=== PATIENT | female | born 1975 | race Caucasian/White ===

== ENCOUNTER → 2018-04-27 14:26 | Outpatient (CLI) | payer OTHER, SELFPAY ==
[2018-05-03 08:31] LABS: HPV HC, High Risk Negative (Negative)
== END ==
PROVIDERS: Visit Provider Obstetrics & Gynecology
DX: Z12.4 Encounter for screening for malignant neoplasm of cervix (principal)
CPT/HCPCS: 87624; 88175; G0145

== ENCOUNTER → 2019-05-08 15:29 | Outpatient (CLI) | payer OTHER, SELFPAY ==
[2019-04-08 10:00] VITALS: BMI 46.8
--- NOTE | 2019-05-08 15:31 | RAD_ITS ---
STUDY: X-RAY - LUMBAR SPINE REASON FOR EXAM: Female, 43 years old. Back pain. TECHNIQUE: 3 view(s) of the lumbar spine were obtained. COMPARISON: June 10, 2016 FINDINGS: Normal lumbar lordosis. There is no substantial scoliosis. There is a normal alignment of the vertebrae. There is multilevel endplate spondylosis of the lumbar vertebrae. There is degenerative disc disease with disc space narrowing at L4-L5 and L5-S1. The soft tissue structures are unremarkable. RAD/Lumbar Spine 2 or 3 Views IMPRESSION: Degenerative changes of the spine, as detailed above. Electronically Signed: Mckenzie Barry MD at 16:04 EDT Tel , Service support ,
== END ==
PROVIDERS: Family Provider Family Medicine; PCP Family Medicine; Referring Provider Anesthesiology Pain Medicine; Visit Provider Anesthesiology Pain Medicine
DX: M54.9 Dorsalgia, unspecified (principal); M79.606 Pain in leg, unspecified
CPT/HCPCS: 72100; 72110

== ENCOUNTER → 2019-06-14 10:40 | Outpatient (CLI) | payer OTHER, SELFPAY ==
[2019-05-15 15:40] VITALS: BMI 46.8
--- NOTE | 2019-06-14 10:42 | STEWCON_ITS ---
Reason For Study: Chest Pain Stress Results Protocol: Shay Protocol Maximum Predicted HR: 178 bpm Target HR: 151 bpm % Maximum Predicted HR: 99 % DurationHeart Rate Stage (mm:ss) (bpm) BP Comment Baseline 85 128/78No Chest Pain; 4 ML Diluted Definity Given Shay Protocol Stage I 3:00 134 142/74No Chest Pain Shay Protocol Stage II 3:00 162 160/70No Chest Pain; Mild Dyspnea Shay Protocol Stage III 1:30 176 / No Chest Pain; Mild Dyspna Recovery 106 122/70No Chest Pain Stress Duration: 7:30 mm:ss Maximum Stress HR: 176 bpm METS: 10 Baseline Echocardiogram Findings Stress Echo Wall motion Data Resting WM Intermediate WM Stress WM Interpretation Summary Resting EKG demonstrates normal sinus rhythm with a rate of 84 bpm normal intervals are noted resting blood pressures 128/78 mmHg. Patient exercised according to regular Shay protocol for a total duration of 7 minutes and 30 seconds. The patient completed 1 minute and 30 seconds to stage III of the Shay protocol the maximum heart rate attained was 176 bpm which was 98% of maximum predicted heart rate the maximum workload was 10.4 metabolic equivalents. The patient maintained sinus rhythm throughout the recording. At rest there were no ST or T wave changes noted suggest ischemia. The resting blood pressures 128/78 peak blood pressure 160/70 mmHg. Stress echocardiogram. Resting and stress echocardiogram was performed with Definity enhancement. The resting ejection fraction was noted to be 55% with a peak ejection fraction of 65 to 70%. No wall motion abnormalities were noted. Conclusion: Exercise stress echocardiogram with no evidence of ischemia. Excellent functional capacity. No arrhythmias noted. Preserved ejection fraction Ordering Physician: Wellington Ingram Referring Physician: Malcom Peters Performed By: Racquel Willard, RDCS, RVT
== END ==
PROVIDERS: Family Provider Family Medicine; PCP Family Medicine; Referring Provider Family Medicine; Visit Provider Family Medicine
DX: R07.9 Chest pain, unspecified (principal)
CPT/HCPCS: 93017; 93350; Q9957; A4216; C8928

== ENCOUNTER → 2021-02-12 14:16 | Outpatient (CLI) | payer SELFPAY ==
[2019-05-15 15:40] VITALS: BMI 46.8
[2021-02-12 14:27] VITALS: BP 118/67; PULSE 62; RESP 14; O2SAT 100; BMI 42.9
--- NOTE | 2021-02-12 14:36 | CT_ITS ---
STUDY: CT CHEST WITHOUT CONTRAST REASON FOR EXAM: Female, 45 years old. STRONG FAMILY HX CAD RADIATION DOSAGE (If Supplied By Facility): CTDIvol = ( 12.19 ) mGy, DLP = ( 243.79 ) mGycm TECHNIQUE: Transaxial imaging was performed without the administration of intravenous contrast material. Individualized dose optimization techniques were used for this CT. COMPARISON: None. FINDINGS: The lungs are normal. There is no demonstrated pleural abnormality. Normal heart and pericardium. There are scattered small lymph nodes within the mediastinum, which are normal in size and morphology most compatible with reactive lymph hyperplasia. Normal hilar regions. Normal unenhanced pulmonary arteries. Normal aorta arch and descending thoracic aorta. Normal osseous structures. There is no demonstrated abnormality of the visualized upper abdomen. CT/Limited Chest CT w/CCTA IMPRESSION: Normal unenhanced CT Chest examination. Electronically Signed: Flaco Hopkins MD at 12:29 EDT , Service support ,
--- NOTE | 2021-02-15 09:24 | CA.SCORE ---
Calcium Scoring Coronary Calcium Scoring: High-resolution Computed Tomographic imaging of the chest was performed on [02/12/2021], with particular attention paid to the coronary arteries. Images from the examination were analyzed for the presence and extent of coronary artery calcification , using coronary calcium quantification software. The patient tolerated the procedure well and there were no complications. The results of the coronary calcification analysis are provided below. Left main score is 0 Left anterior descending artery score 0 Left circumflex artery score 0 Right coronary artery score 0 Total Agatston score 0. The above is suggestive of no identifiable atherosclerotic plaquing. Very low cardiovascular disease risk noted. Calcium Scoring Interpretation: 0 No identifiable atherosclerotic plaque. Very low cardiovascular disease risk. <5% chance of presence coronary artery disease A Negative Examination 1-10 Minimal Plaque burden. Significant coronary artery disease very unlikely. 11-100 Mild plaque burden. Likely mild or minimal coronary atherosclerosis. 101-400 Moderate plaque burden Moderate non-obstructive coronary artery disease highly likely. Over 400 Extensive plaque burden. High likelihood of at least one significant coronary stenosis (>50% diameter)
== END ==
PROVIDERS: PCP Family Medicine; Referring Provider Family Medicine; Visit Provider Family Medicine
DX: Z13.6 Encounter for screening for cardiovascular disorders (principal); E78.5 Hyperlipidemia, unspecified; R73.01 Impaired fasting glucose; Z82.49 Family history of ischemic heart disease and other diseases of the circulatory system
CPT/HCPCS: 75571; 76380

== ENCOUNTER 2022-04-27 15:44 | Outpatient (RCR) | payer OTHER, SELFPAY ==
--- NOTE | 2022-04-29 09:32 | HP.OTEVAL ---
Patient's Visit Information EUGENIA SOMMER is a 46 year old F, referred to Occupational Therapy by Dr. Wellington Ingram DO, with a diagnosis of CTS. Date of Evaluation: 04/27/22 Occupational Therapist: Linda Licona, JESSICAR/Rob, CHT - Subjective This 46 year old female was seen due to pain in and soreness in right hand with tingling/numbness- states symptoms would come and go but has not changed much in last 2 months. Tingling does cause pain and by the end of her work week pain is 6/10. 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 pt would like to decrease symptoms. - Pain right hand \ 0 Pain Intensity Range: 6 - ROM ROM Comments: pt demo full ROM of bilateral UE - Strength Buffing Wheel Operator: right 65# left 60# Lateral Pinch: right 10# left10# Tripod Pinch: right 10# left 10# - Sensation Thumb: right 2.83 left 2.83 Index: right 2.83 left 2.83 Middle: right 2.83 left 2.83 Ring: right 2.83 left 2.83 Little: right 2.83 left 2.83 - Quick DASH-Disab of Arm,Shoulder& Hand Quick DASH Score: 30.0000 - Goals Goal:: pt will report a decrease in CTS of right hand by 75% by d/c indicating a decrease in nerve compression. Goal:: pt will demo IND doffing/donning night orthosis by end of 1st session. pt will demo understanding of returning to clinic for orthosis adj. by end of 1st session. - Rehabilitation General Assessment: this 46 year old female is demo with positive signs of CTS. this is causing pain- tingling and numbness that interrupts her work day and sleeping. PT would benefit from skilled OT services 1-2x week for 4 weeks to decrease symptom of median nerve entrapment. pt agrees to POC. Rehabilitation Potential: Good - Anticipated Interventions A/AAROM/PROM, Modalities, Orthoses, Joint Protection/Energy Conservation, Ergonomic Education, Education re assistive Equipment, Education re Diagnosis, Home Program, Other Other Interventions: median nerve glides - Visit Plan TEXT: Thank you for the opportunity to evaluate your patient. For Medicare and Medicare HMO plans, please review the plan of care and approve it. It will need to be FAXED BACK to us at [phone] for Medicare purposes. Please let me know if there are questions or concerns regarding this plan of care. Physician Signature: Date:
--- NOTE | 2022-07-27 11:52 | HP.OT.NRP ---
EUGENIA SOMMER was seen in my office for initial evaluation on 04/27/22. The following Plan of Care was established for this patient: Anticipated Interventions: A/AAROM/PROM, Modalities, Orthoses, Joint Protection/Energy Conservation, Ergonomic Education, Education re assistive Equipment, Education re Diagnosis, Home Program, Other Other Interventions: median nerve glides This patient was last seen in our office 04/27/22. Pertinent comments regarding their Occupational therapy will appear below: Pt was seen for OT eval only. No further apts scheduled and due to time lapse in services pt d.c at this time. At this point I will be discontinuing this patient from occupational therapy. I would be happy to see this patient again in the future if found appropriate by the physician. Thank you! Linda Licona, OTR/L, CHT
== END 2022-04-27 19:00 | disposition home or self-care (01) ==
LOC: OT 15:44
PROVIDERS: PCP Family Medicine; Referring Provider Family Medicine; Visit Provider Family Medicine
DX: M77.8 Other enthesopathies, not elsewhere classified (principal); G56.01 Carpal tunnel syndrome, right upper limb; M79.672 Pain in left foot
CPT/HCPCS: 97166

== ENCOUNTER → 2022-06-17 | Outpatient (CLI) | payer OTHER, SELFPAY ==
--- NOTE | 2022-06-17 08:00 | BI_ITS ---
MAMMOGRAPHY - BILATERAL SCREENING REASON FOR EXAM: Female, 47 years old. Routine annual screening examination. PERTINENT HISTORY: Non-contributory. History of prior bilateral breast reduction surgery. TECHNIQUE: Digital bilateral breast eugenia (3D mammographic acquisition) in the CC and MLO projections. 2-D mediolateral oblique (MLO) and craniocaudad (CC) views of both breasts were obtained. CAD: Full Field Digital Mammography with Computer Added Detection was performed. COMPARISON: Comparison is made with prior study dated 10/07/2016. FINDINGS: Breast Composition: The breasts are almost entirely fatty. There are no dominant masses or suspicious calcifications. Stable small benign-appearing bilateral axillary lymph nodes. No other significant abnormalities are identified. There has been no significant change since the prior study. BI/SCRN MAMM (CAD)W/EUGENIA BILAT IMPRESSION: Stable bilateral screening mammogram. Yearly follow-up mammogram recommended. (A) ASSESSMENT CATEGORY: BIRADS Category 1: Negative. A letter regarding these results will be sent to the patient by the facility within 30 days. Approximately 10% of breast cancers are not detected by mammography. A normal mammogram should not delay biopsy of a clinically suspicious abnormality. [id number] Electronically Signed: Flaco Hopkins MD at 8:45 EDT ,
== END | disposition home or self-care (01) ==
LOC: OPBI 07:59
PROVIDERS: PCP Family Medicine; Referring Provider Family Medicine; Visit Provider Family Medicine
DX: Z12.31 Encounter for screening mammogram for malignant neoplasm of breast (principal)
CPT/HCPCS: 77063; 77067

== ENCOUNTER 2022-09-15 07:32 | Day surgery (SDC) | payer OTHER, SELFPAY ==
[2022-09-15] VITALS (7 sets, daily range): BP systolic 107–120; BP diastolic 54–63; PULSE 78–85; RESP 16–18; TEMP 36.4–37.2; O2SAT 96–100; BMI 41.1
[2022-09-15] MEDS: Lactated Ringers 1,000 ML 15 ML IV (08:00)
[2022-09-15 08:03] LABS: Internal QC Validated? YES +Cl - CLEAR BKGD; Pregnancy, Urine Negative Negative
--- NOTE | 2022-09-15 08:43 | HP.PCM_ITS ---
[facility] - General General Date of Service: 09/15/22 Chief Complaint: Colon cancer screening [facility] Narrative EUGENIA SOMMER, is a 47 F who presents for open access colonoscopy. She was previously screened through our routine questionnaire. She confirms that she has not had any recent complaints with her bowel movements?further she details that she has not had any bleeding, constipation, or diarrhea. She notes that her only familial gastrointestinal history of significance is a maternal grandfather who was diagnosed with diverticulitis late in life. Personally her only gastrointestinal surgery was cholecystectomy. She denies any present use of blood thinners. [facility] Medical History (Updated 09/14/22 @ 13:52 by Melissa Aceves) Bronchitis Cervical radiculitis Cervical strain Contact dermatitis due to poison ronal Endometrial polyp History of stress test Insect bite Low iron Menorrhagia Neck pain Non-smoker Shoulder pain Tinea corporis Home Medications NK 09/14/22 [History Last Taken Unknown] Allergy/AdvReac Type Severity Reaction Status Date / Time No Known Allergies Allergy Verified 09/15/22 07:51 Family History (Updated 07/25/22 @ 08:59 by Sana Gusman) Mother S/P CABG x 3 Father CAD (coronary artery disease) Other Diabetes Heart disease Surgical History (Updated 09/14/22 @ 13:52 by Melissa Aceves) History of bilateral breast reduction surgery History of cholecystectomy History of D&C History of endometrial ablation Social History (Updated 07/25/22 @ 08:59 by Sana Gusman) current occupational status: employed current occupation: Massage Therapist at [employer] Smoking Status: Never smoker alcohol intake: never Past Medical/Surgical History Planned Operation Planned Operative Procedure/s: CSCOPE OA S.O.S: No Previous Hospitalizations/Surgeries HX Hospitalizations: No HX of Surgeries: BILATERAL BREAST REDUCTION Any Problems With Anesthesia: No You/Your Family Experience Fever (Hyperthermia) With Anes: No Cholinesterase deficiency: No Cardiovascular Hx Chest Pain within Last 2 months: No Hx of Irregular Heartbeat and/or Afib: No Hx Heart Attack: No Hx Congestive Heart Failure: No Hx Rheumatic Fever: No Hx Hypertension: No Hx Internal Defibrillator: No Hx Pacemaker: No Hx Cardiac Catheterization: No Hx Cardiac Surgery/Stents/Etc.: No Hx Stress Test: No Hx Pain in Legs when Walking/Leg Cramps: No Respiratory Chronic Cough: No HX of Shortness of Breath: No Hoarseness: No Hx Chronic Obstructive Pulmonary Disease (COPD): No Hx Asthma: No Hx Emphysema: No Hx Sleep Apnea: No CPAP: No BIPAP: No Hx Respiratory Tract Infection/Cold (presently): No Do You Snore Loudly (louder than talking or can be heard): No Do You Often Feel Tired/ Fatigued/ Sleepy Dring Daytime?: No Has Anyone Observed You Stop Breathing During Sleep?: No Result (for STOP score): Negative Hx Smoking: No Smoking Status: Never smoker Gastrointestinal Hx Gastroesophageal Reflux: No Controlled With Meds: Yes Hx Gastrointestinal Disorders: No Hx Gastrointestinal Bleed: No Hx Ulcer: No Hx Hiatal Hernia: No Difficulty Chewing/Swallowing: No Special diet followed at home: No Hx Unplanned Weight Loss of 20#: No HX Unplanned Weight Gain of 20#: No Neurological Hx Seizures: No HX Syncope/Blackout Spells/Unconsciousness: No Hx Transient Ischemic Attacks (TIA): No Hx Multiple Sclerosis: No Hx Parkinson's Disease: No Hx Head/Neck Injury: No Hx Headaches: No Hx Back Injury/Pain: No Recent Onset of Speech Difficulty: No Restless Legs: No Does patient have nerve stimulator: No Blood Disorder Hx Leukemia: No Bleeding Tendencies: No Hx Deep Vein Thrombosis: No Hx High Cholesterol: No Blood Transmitted Disease: No Hx Hepatitis: No Hx Cirrhosis: No Hx Anemia: No Hx Blood Disorders: No Reproduction : No Is Patient Lactating: No Hx Tubal Ligation: No Genitourinary Hx Renal Disease: No Musculoskeletal Hx Arthritis: No Hx Rheumatoid Arthritis: No Hx Gout: No Recent Onset of an Orthopedic Problem: No Endocrine Hx Diabetes: No Thyroid Disease: No Hx Steroid Therapy: No Psycho/Social Hx Substance Use: No Hx Alcohol Use: Yes (OCC) Hx Anxiety: No Hx Depression: No Mental Illness: No Hx Dementia: No Miscellaneous Hx Cancer: No Recent Exposure to Contagious Disease: No Hx of C-Diff: No Any Loose Teeth: No Allergies No Known Allergies Allergy (Verified 09/15/22 07:51) Discharge Is Pt Admitted From a Penitentiary, or a Penitentiary: No After D/C, Where Do you Plan to Go: Return Home Vital Signs Vital Signs Vital Signs: 09/15/22 07:52 09/15/22 07:52 Temperature 97.7 F L Temperature Source Temporal Pulse Rate 83 Respiratory Rate 18 Respiratory Pattern Normal Blood Pressure 120/57 L Blood Pressure Mean 78 Blood Pressure Source Monitor Blood Pressure Position Semi-Fowlers Blood Pressure Location Right Arm Pulse Ox 98 Oxygen Delivery Method Room Air Weight Weight: 240 lb Body Mass Index (BMI) 41.1 Physical Exam Const alert, oriented x3 and no apparent distress General Appearance: cooperative and comfortable Nutritional Appearance: obese GI Inspection: scar and striae Palpation: soft; Negative for tender Assessment & Plan Assessment/Plan (1) Encounter for screening for malignant neoplasm of colon: PLAN: Is a 47-year-old female who presents for colon cancer screening through our open access program. She confirms the details of her previously completed questionnaire and appears to be at average risk for colon cancer.. She presents simply to fill maintenance requirement for first exam at age 47. She confirms that she completed a bowel prep and that her output is now clear. Therefore we will proceed to the endoscopy suite for previously scheduled screening colonoscopy under local MAC. Surgery Risks - Colonoscopy Risks Include but are not Limited To: Risks include but are not limited to: Bleeding, perforation requiring further surgery, inability to complete colonoscopy requiring barium enema.
--- NOTE | 2022-09-15 09:39 | OP.COLON_ITS ---
Patient Name: Tamra Navarro Procedure Date: 09/15/2022 8:36 AM Date of : 1975 Age: 47 Procedure: Colonoscopy Indications: Screening for colorectal malignant neoplasm Providers: Keith Schumacher MD Medicines: See the Anesthesia note for documentation of the administered medications Patient Profile: Last Colonoscopy: none. The patient's first colonoscopy is today. Complications: No immediate complications. Estimated blood loss: None. Procedure: Pre-Anesthesia Assessment: - The heart rate, respiratory rate, oxygen saturations, blood pressure, adequacy of pulmonary ventilation, and response to care were monitored throughout the procedure. After I obtained informed consent, the scope was passed under direct vision. Throughout the procedure, the patient's blood pressure, pulse, and oxygen saturations were monitored continuously. The Colonoscope was introduced through the anus and advanced to the cecum, identified by palpation. The colonoscopy was somewhat difficult due to significant looping. Successful completion of the procedure was aided by withdrawing and reinserting the scope and using scope torsion. The patient tolerated the procedure well. The quality of the bowel preparation was adequate to identify polyps 6 mm and larger in size. Scope In: 8:53:10 AM Scope Withdrawal Time 0 hours 16 minutes 33 seconds Scope Out: 9:31:32 AM Total Procedure Duration Time 0 hours 38 minutes 22 seconds Findings: The entire examined colon appeared normal on direct and retroflexion views. Skin tags were found on perianal exam. Impression: - The entire examined colon is normal on direct and retroflexion views. - Perianal skin tags found on perianal exam. - No specimens collected. Recommendation: - Discharge patient to home (via wheelchair). - Resume previous diet today. - Continue present medications. - Repeat colonoscopy in 10 years for screening purposes. Procedure Code(s): --- Professional --- 27823, Colonoscopy, flexible; diagnostic, including collection of specimen(s) by brushing or washing, when performed (separate procedure) Diagnosis Code(s): --- Professional --- Z12.11, Encounter for screening for malignant neoplasm of colon K64.4, Residual hemorrhoidal skin tags CPT copyright 2017 [employer]. All rights reserved. The codes documented in this report are preliminary and upon arcade attendant review may be revised to meet current compliance requirements. Keith Schumacher MD 09/15/2022 9:39:00 AM This report has been signed electronically. Number of Addenda: 0 Note Initiated On: 09/15/2022 8:36 AM
--- NOTE | 2022-09-15 09:40 | OP.CCLET_ITS ---
09/15/2022 Wellington Ingram [address] [place] [address] Re : Colonoscopy procedure for Tamra Navarro Dear Dr. Ingram This procedure was performed on August. My impressions and recommendations are as follows: Impressions : - The entire examined colon is normal on direct and retroflexion views. - Perianal skin tags found on perianal exam. - No specimens collected. Recommendations : - Discharge patient to home (via wheelchair). - Resume previous diet today. - Continue present medications. - Repeat colonoscopy in 10 years for screening purposes. My findings are described in the full procedure note, which is enclosed. If I can be of further assistance, please feel free to contact me at Doctor phone number(s): , Work: . Sincerely, Keith Schumacher MD 09/15/2022 9:39:00 AM This report has been signed electronically.
== END 2022-09-15 10:24 | disposition home or self-care (01) ==
LOC: EN 07:33 → AC 07:35
PROVIDERS: Anesthesiology; PCP Family Medicine; Referring Provider Family Medicine; Visit Provider Surgery
PROC: 0DJD8ZZ Inspection of Lower Intestinal Tract, Via Natural or Artificial Opening Endoscopic (ICD-10-PCS; CPT 45378; principal; 2022-09-15 08:25)
DX: Z12.11 Encounter for screening for malignant neoplasm of colon (principal); Z68.41 Body mass index [BMI] 40.0-44.9, adult; K64.4 Residual hemorrhoidal skin tags; E66.9 Obesity, unspecified
CPT/HCPCS: 45378; 81025; J7120; J2405

== ENCOUNTER → 2024-06-28 | Outpatient (CLI) | payer OTHER, SELFPAY | END | disposition home or self-care (01) | LOC: OPBI 10:03 | PROVIDERS: PCP Family Medicine; Referring Provider Family Medicine; Visit Provider Family Medicine | DX: Z12.31 Encounter for screening mammogram for malignant neoplasm of breast (principal) | CPT/HCPCS: 77063; 77067 ==